=== PATIENT | male | born 1960 | race African-American/Black ===

== ENCOUNTER 2020-02-27 17:58 | Inpatient (IN) | payer MEDICARE, MEDICAID ==
[~2020-02-27] VITALS: Ht 182.9 cm; Wt 85.7 kg
[2020-02-27] MEDS ORDERED: MORPHINE SULFATE 4 MG/ML CPJ (NOT FOR IM USE) IV STA (18:21)
[2020-02-27] MEDS ORDERED: ONDANSETRON HCL 4MG/2ML INJ IV ONE (18:30)
[2020-02-27] MEDS ORDERED: SODIUM CHLORIDE 0.9% 1,000 ML IV ONE (18:30)
[2020-02-27 18:50] LABS: BASOPHILS % 0.9 % (0.0-2.0); EOSINOPHILS % 3.3 % (0.0-5.0); HEMATOCRIT. 41.7 % (42.0-52.0); HEMOGLOBIN. 14.3 g/dL (14.0-18.0); LYMPHOCYTES % 24.1 % (20.0-50.0); MEAN CORPUSCULAR HEMOGLOBIN 35.6 pg (28.0-32.0); MEAN CORPUSCULAR VOLUME 103.4 fL (80.0-94.0); MEAN PLATELET VOLUME 9.5 fl (7.4-10.4); MONOCYTES % 7.1 % (2.0-8.0); NEUTROPHILS % 64.6 % (40.0-76.0); PLATELET 187 x1000/uL (130-400); RED BLOOD CELL COUNT 4.03 mill/uL (4.7-6.1); RED CELL DISTRIBUTION WIDTH 12.2 % (11.6-14.6)
[2020-02-27 19:00] LABS: CHLORIDE 108 mEq/L (98-107)
[2020-02-27] MEDS ORDERED: HYDROMORPHONE HCL/PF 2MG/ML CPJ IV ONE ×2 (20:45→21:45)
[2020-02-27 21:14] LABS: PARTIAL THROMBOPLASTIN TIME 26.4 sec (23.4-31.0)
[2020-02-28] MEDS ORDERED: MORPHINE SULFATE 2 MG/ML CPJ (NOT FOR IM USE) IV PRN (07:45)
[2020-02-28] MEDS ORDERED: HYDROCODONE/ACETAMINOPHEN 10/325MG TABLET PO PRN (09:15)
[2020-02-28] MEDS ORDERED: ONDANSETRON HCL 4MG/2ML INJ IV PRN (09:15)
[2020-02-28] MEDS ORDERED: CLONIDINE 0.1MG TABLET PO PRN (10:45)
[2020-02-28] MEDS: HYDROMORPHONE HCL/PF 2MG/ML CPJ IV PRN ×4 (11:09→20:47)
[2020-02-28 14:06] VITALS: BP 168/103
[2020-02-28 16:00] VITALS: BP 124/82
[2020-02-28 20:00] VITALS: BP 155/88
[2020-02-29 00:23] VITALS: BP 143/93
[2020-02-29] MEDS: HYDROMORPHONE HCL/PF 2MG/ML CPJ IV PRN ×7 (00:25→22:07)
[2020-02-29 04:00] VITALS: BP 155/94
[2020-02-29 08:00] VITALS: BP 128/81
[2020-02-29 12:00] VITALS: BP 120/80
[2020-02-29] MEDS ORDERED: OXYCODONE HCL/ACETAMINOPHEN 5/325MG TABLET PO NR (14:15)
[2020-02-29 16:00] VITALS: BP 122/76
[2020-02-29] MEDS ORDERED: HYDROMORPHONE HCL/PF 2MG/ML CPJ IV NR (16:45)
[2020-02-29] MEDS: DOCUSATE SODIUM 250MG CAPSULE PO SCH (18:02)
[2020-02-29 20:00] VITALS: BP 139/89
[2020-03-01] VITALS: BP_SYST 119; BP_SYST 139; BP_DIAS 74; BP_DIAS 89
[2020-03-01] MEDS: HYDROMORPHONE HCL/PF 2MG/ML CPJ IV PRN ×6 (01:18→20:00)
[2020-03-01 04:00] VITALS: BP 113/74
[2020-03-01 07:23] LABS: BASOPHILS % 0.4 % (0.0-2.0); EOSINOPHILS % 1.7 % (0.0-5.0); HEMATOCRIT. 39.2 % (42.0-52.0); HEMOGLOBIN. 13.7 g/dL (14.0-18.0); LYMPHOCYTES % 16.5 % (20.0-50.0); MEAN CORPUSCULAR HEMOGLOBIN 36.1 pg (28.0-32.0); MEAN CORPUSCULAR VOLUME 103.3 fL (80.0-94.0); MEAN PLATELET VOLUME 9.5 fl (7.4-10.4); MONOCYTES % 12.3 % (2.0-8.0); NEUTROPHILS % 69.1 % (40.0-76.0); PLATELET 146 x1000/uL (130-400); RED BLOOD CELL COUNT 3.79 mill/uL (4.7-6.1); RED CELL DISTRIBUTION WIDTH 12.2 % (11.6-14.6)
[2020-03-01 08:00] VITALS: BP 111/71
[2020-03-01 08:04] LABS: CHLORIDE 103 mEq/L (98-107)
[2020-03-01] MEDS: DOCUSATE SODIUM 250MG CAPSULE PO SCH (08:41)
[2020-03-01] MEDS: KETOROLAC 30MG/ML VIAL IV PRN (11:19)
[2020-03-01 12:00] VITALS: BP 126/69
[2020-03-01] MEDS: OXYCODONE HCL/ACETAMINOPHEN 5/325MG TABLET PO PRN ×3 (13:23→22:18)
[2020-03-01 16:00] VITALS: BP 111/71
[2020-03-01 20:00] VITALS: BP 109/64
[2020-03-02] VITALS: BP 110/76
[2020-03-02] MEDS: HYDROMORPHONE HCL/PF 2MG/ML CPJ IV PRN ×6 (00:27→10:37)
[2020-03-02 04:00] VITALS: BP 112/68
[2020-03-02] MEDS ORDERED: BUPIVACAINE/EPINEPH/PF 0.25%/0.0005 10ML ONE (06:34)
[2020-03-02] MEDS ORDERED: VANCOMYCIN HCL 1 GM/VIAL ONE (06:34)
[2020-03-02] MEDS ORDERED: BACITRACIN 50,000 UNITS/VIAL ONE (06:34)
[2020-03-02] MEDS: KETOROLAC 30MG/ML VIAL IV PRN (06:50)
[2020-03-02] MEDS ORDERED: FENTANYL CITRATE/PF 50MCG/ML 2ML VIAL ONE (07:45)
[2020-03-02] MEDS ORDERED: PROPOFOL 200MG/20ML VIAL IV ONE ×2 (07:45→09:45)
[2020-03-02] MEDS ORDERED: MIDAZOLAM HCL 2 MG/2 ML VIAL ONE (07:46)
[2020-03-02] MEDS ORDERED: DEXAMETHASONE 4MG/ML 1ML VIAL ONE ×2 (07:49→08:10)
[2020-03-02] MEDS ORDERED: ONDANSETRON HCL 4MG/2ML INJ ONE (07:49)
[2020-03-02] MEDS ORDERED: HYDROMORPHONE HCL/PF 2MG/ML (OR) ONE (08:14)
[2020-03-02] MEDS ORDERED: LABETALOL 5MG/ML SYR 20 MG/4 ML SYRINGE IV PRN (09:00)
[2020-03-02] MEDS: DOCUSATE SODIUM 250MG CAPSULE PO SCH (09:00)
[2020-03-02] MEDS ORDERED: ONDANSETRON HCL 4MG/2ML INJ IV PRN (09:00)
[2020-03-02] MEDS ORDERED: MEPERIDINE HCL/PF 25MG/ML CPJ IV PRN (09:00)
[2020-03-02] MEDS ORDERED: HYDROMORPHONE PCA 50 ML IV ONE (09:58)
[2020-03-02] MEDS ORDERED: DIPHENHYDRAMINE INJ IV PRN (10:30)
[2020-03-02] MEDS ORDERED: ONDANSETRON INJ IV PRN (10:30)
[2020-03-02] MEDS ORDERED: NALOXONE INJ IV PRN (10:30)
[2020-03-02] MEDS ORDERED: KETOROLAC 30MG/ML VIAL IV SCH (10:45)
[2020-03-02] MEDS ORDERED: MEPERIDINE HCL/PF 50MG/ML CPJ IM SCH (10:45)
[2020-03-02] MEDS: HYDROMORPHONE PCA 10MG/50ML IV PRN (11:28)
[2020-03-02 12:00] VITALS: BP 128/77
[2020-03-02 16:00] VITALS: BP 126/72
[2020-03-02 18:48] LABS: CLARITY URINE CLEAR (CLEAR); COLOR URINE YELLOW (YELLOW); KETONES URINE NEGATIVE (NEGATIVE); LEUKOCYTE ESTERASE URINE NEGATIVE (NEGATIVE); NITRITE URINE NEGATIVE (NEGATIVE); OCCULT BLOOD URINE 2+ (NEGATIVE); PROTEIN URINE TRACE (NEGATIVE); SPECIFIC GRAVITY URINE 1.026 (1.005-1.030)
[2020-03-02 20:00] VITALS: BP 127/70
[2020-03-02] MEDS: OXYCODONE HCL/ACETAMINOPHEN 5/325MG TABLET PO PRN (21:31)
[2020-03-03] VITALS: BP 122/65
[2020-03-03] MEDS: HYDROMORPHONE PCA 10MG/50ML IV PRN (01:18)
[2020-03-03] MEDS: OXYCODONE HCL/ACETAMINOPHEN 5/325MG TABLET PO PRN ×6 (01:37→22:24)
[2020-03-03 04:00] VITALS: BP 115/73
[2020-03-03 08:00] VITALS: BP 150/91
[2020-03-03 08:20] LABS: BASOPHILS % 0.4 % (0.0-2.0); HEMATOCRIT. 34.2 % (42.0-52.0); HEMOGLOBIN. 12.2 g/dL (14.0-18.0); LYMPHOCYTES % 14.4 % (20.0-50.0); MEAN CORPUSCULAR HEMOGLOBIN 36.9 pg (28.0-32.0); MEAN CORPUSCULAR VOLUME 103.6 fL (80.0-94.0); MEAN PLATELET VOLUME 9.8 fl (7.4-10.4); NEUTROPHILS % 71.2 % (40.0-76.0); PLATELET 149 x1000/uL (130-400); RED CELL DISTRIBUTION WIDTH 12.1 % (11.6-14.6)
[2020-03-03 08:31] LABS: CHLORIDE 103 mEq/L (98-107)
[2020-03-03] MEDS: DOCUSATE SODIUM 250MG CAPSULE PO SCH (08:57)
[2020-03-03] MEDS: HYDROMORPHONE HCL/PF 2MG/ML CPJ IV PRN ×4 (11:55→23:39)
[2020-03-03 12:00] VITALS: BP 139/71
[2020-03-03 16:00] VITALS: BP 145/50
[2020-03-03] MEDS ORDERED: ENOXAPARIN 40MG/0.4ML SYR SUBCUT SCH (16:00)
[2020-03-03] MEDS: TERBINAFINE HCL 1% CREAM 30GM TOP SCH (17:38)
[2020-03-03 20:00] VITALS: BP 137/81
[2020-03-04] VITALS: BP 150/87
[2020-03-04] MEDS: OXYCODONE HCL/ACETAMINOPHEN 5/325MG TABLET PO PRN ×3 (02:27→14:54)
[2020-03-04 04:00] VITALS: BP 119/77
[2020-03-04] MEDS: HYDROMORPHONE HCL/PF 2MG/ML CPJ IV PRN ×2 (04:12→08:30)
[2020-03-04 07:27] LABS: BASOPHILS % 0.6 % (0.0-2.0); EOSINOPHILS % 3.8 % (0.0-5.0); HEMATOCRIT. 36.1 % (42.0-52.0); HEMOGLOBIN. 12.3 g/dL (14.0-18.0); MEAN CORPUSCULAR HEMOGLOBIN 35.7 pg (28.0-32.0); MEAN CORPUSCULAR VOLUME 104.2 fL (80.0-94.0); MEAN PLATELET VOLUME 9.8 fl (7.4-10.4); MONOCYTES % 12.8 % (2.0-8.0); NEUTROPHILS % 66.8 % (40.0-76.0); PLATELET 175 x1000/uL (130-400); RED BLOOD CELL COUNT 3.46 mill/uL (4.7-6.1)
[2020-03-04 07:42] LABS: CHLORIDE 101 mEq/L (98-107)
[2020-03-04 08:00] VITALS: BP 120/77
[2020-03-04] MEDS: DOCUSATE SODIUM 250MG CAPSULE PO SCH (08:28)
[2020-03-04] MEDS: TERBINAFINE HCL 1% CREAM 30GM TOP SCH (08:29)
[2020-03-04] MEDS ORDERED: HYDROMORPHONE HCL/PF 2MG/ML CPJ IV PRN (11:45)
[2020-03-04 12:00] VITALS: BP 128/76
[2020-03-04] MEDS ORDERED: SODIUM POLYSTYRENE SULFONATE 15 G/60 ML BOT PO NR (12:30)
[2020-03-04 15:51] VITALS: BP 137/80
[2020-03-04 16:00] VITALS: BP 137/80
[2020-03-04] MEDS ORDERED: DIAZEPAM 5 MG TABLET PO NR ×2 (16:30→17:00)
[2020-03-04] MEDS ORDERED: OXYCODONE HCL/ACETAMINOPHEN 5/325MG TABLET PO SCH (18:30)
== END 2020-03-04 16:37 | DRG 481 ==
LOC: ER 17:58 → 6EST 21:27 → ENRESERV 02-28 07:51
PROVIDERS: ADMIT Internal Medicine; ATTEND Internal Medicine
PROC: 0QSB04Z Reposition Right Lower Femur with Internal Fixation Device, Open Approach (ICD-10-PCS; principal; 2020-03-02)
DX: S72.451A Displaced supracondylar fracture without intracondylar extension of lower end of right femur, initial encounter for closed fracture (principal); S82.001A Unspecified fracture of right patella, initial encounter for closed fracture; E87.8 Other disorders of electrolyte and fluid balance, not elsewhere classified; M11.20 Other chondrocalcinosis, unspecified site; M17.11 Unilateral primary osteoarthritis, right knee; M48.061 Spinal stenosis, lumbar region without neurogenic claudication; M25.461 Effusion, right knee; M48.02 Spinal stenosis, cervical region; W13.2XXA Fall from, out of or through roof, initial encounter; Y93.89 Activity, other specified; Z88.6 Allergy status to analgesic agent; Z88.8 Allergy status to other drugs, medicaments and biological substances; Y92.89 Other specified places as the place of occurrence of the external cause; Y99.8 Other external cause status; Z03.818 Encounter for observation for suspected exposure to other biological agents ruled out
CPT/HCPCS: 36415; 71045; 72128; 72131; 72170; 73552; 73562; 73700; 76000; 80048; 80053; 81003; 84484; 85025; 93005; 97162; 97165; 97530; 99285; J0171; J1100; J1170; J1650; J1885; J2175; J2250; J2270; J2405; J2704; J3010; J3370; J3490; J7030; U0003-CS

== ENCOUNTER 2020-03-04 16:40 | Inpatient (IN) | payer MEDICARE, MEDICAID ==
[~2020-03-04] VITALS: Ht 167.6 cm; Wt 177.8 kg
[2020-03-04] MEDS ORDERED: NALOXONE HCL 0.4 MG/ML 1ML VIAL IV NR (17:15)
[2020-03-04] MEDS ORDERED: CLONIDINE 0.1MG TABLET PO PRN (17:15)
[2020-03-04] MEDS ORDERED: KETOROLAC 30MG/ML VIAL IV PRN (17:15)
[2020-03-04] MEDS ORDERED: ONDANSETRON HCL 4MG/2ML INJ IV PRN ×2 (17:15)
[2020-03-04] MEDS ORDERED: HYDROMORPHONE HCL/PF 2MG/ML CPJ IV PRN (17:15)
[2020-03-04] MEDS ORDERED: OXYCODONE HCL/ACETAMINOPHEN 5/325MG TABLET PO PRN (17:15)
[2020-03-04] MEDS ORDERED: DIPHENHYDRAMINE 50MG/ML VIAL IM PRN (17:15)
[2020-03-04 17:33] VITALS: BP 132/72
[2020-03-04 18:12] VITALS: BP 132/72
[2020-03-04 20:00] VITALS: BP 125/84
[2020-03-04] MEDS ORDERED: LACTULOSE 20G/30ML UDC PO PRN (21:00)
[2020-03-04] MEDS: OXYCODONE HCL/ACETAMINOPHEN 5/325MG TABLET PO PRN (21:35)
[2020-03-05] MEDS: OXYCODONE HCL/ACETAMINOPHEN 5/325MG TABLET PO PRN ×5 (03:15→19:43)
[2020-03-05 06:31] LABS: BASOPHILS % 0.7 % (0.0-2.0); EOSINOPHILS % 4.1 % (0.0-5.0); HEMATOCRIT. 35.7 % (42.0-52.0); HEMOGLOBIN. 12.5 g/dL (14.0-18.0); LYMPHOCYTES % 12.8 % (20.0-50.0); MEAN CORPUSCULAR VOLUME 102.8 fL (80.0-94.0); MEAN PLATELET VOLUME 9.4 fl (7.4-10.4); MONOCYTES % 10.5 % (2.0-8.0); NEUTROPHILS % 71.9 % (40.0-76.0); PLATELET 184 x1000/uL (130-400); RED BLOOD CELL COUNT 3.47 mill/uL (4.7-6.1); RED CELL DISTRIBUTION WIDTH 12.2 % (11.6-14.6)
[2020-03-05 06:38] LABS: CHLORIDE 101 mEq/L (98-107)
[2020-03-05 07:52] VITALS: BP 126/84
[2020-03-05 07:54] VITALS: BP 126/84
[2020-03-05] MEDS: DOCUSATE SODIUM 250MG CAPSULE PO SCH (08:57)
[2020-03-05] MEDS: TERBINAFINE HCL 1% CREAM 30GM TOP SCH (08:58)
[2020-03-05] MEDS: ENOXAPARIN 40MG/0.4ML SYR SUBCUT SCH (08:58)
[2020-03-05] MEDS ORDERED: TERBINAFINE HCL 1% CREAM 30GM TOP SCH (09:00)
[2020-03-05] MEDS: TAMSULOSIN HCL 0.4MG SR CAPSULE PO SCH (11:37)
[2020-03-05] MEDS: BISACODYL 5MG TABLET PO PRN (17:51)
[2020-03-05 20:00] VITALS: BP 133/74
[2020-03-06] MEDS: OXYCODONE HCL/ACETAMINOPHEN 5/325MG TABLET PO PRN ×6 (00:22→21:03)
[2020-03-06 07:57] VITALS: BP 119/84
[2020-03-06] MEDS: TAMSULOSIN HCL 0.4MG SR CAPSULE PO SCH (09:01)
[2020-03-06] MEDS: DOCUSATE SODIUM 250MG CAPSULE PO SCH (09:02)
[2020-03-06] MEDS: ENOXAPARIN 40MG/0.4ML SYR SUBCUT SCH (09:02)
[2020-03-06] MEDS: TERBINAFINE HCL 1% CREAM 30GM TOP SCH (09:04)
[2020-03-06 13:00] VITALS: BP 123/73
[2020-03-06 20:00] VITALS: BP 124/80
[2020-03-07] MEDS: OXYCODONE HCL/ACETAMINOPHEN 5/325MG TABLET PO PRN ×5 (00:43→20:33)
[2020-03-07 07:40] VITALS: BP 124/67
[2020-03-07] MEDS: TERAZOSIN HCL 5MG CAPSULE PO SCH (08:10)
[2020-03-07] MEDS: FINASTERIDE 5MG TABLET PO SCH (08:11)
[2020-03-07] MEDS: DOCUSATE SODIUM 250MG CAPSULE PO SCH (08:11)
[2020-03-07] MEDS: ENOXAPARIN 40MG/0.4ML SYR SUBCUT SCH (08:12)
[2020-03-07] MEDS: TERBINAFINE HCL 1% CREAM 30GM TOP SCH (08:16)
[2020-03-07] MEDS ORDERED: MECLIZINE 25MG TABLET PO SCH (14:30)
[2020-03-07] MEDS ORDERED: MECLIZINE 25MG TABLET PO PRN (15:30)
[2020-03-07 16:09] LABS: BASOPHILS % 0.6 % (0.0-2.0); EOSINOPHILS % 3.1 % (0.0-5.0); HEMATOCRIT. 35.3 % (42.0-52.0); HEMOGLOBIN. 12.4 g/dL (14.0-18.0); LYMPHOCYTES % 14.4 % (20.0-50.0); MEAN CORPUSCULAR HEMOGLOBIN 36.1 pg (28.0-32.0); MEAN CORPUSCULAR VOLUME 102.7 fL (80.0-94.0); MEAN PLATELET VOLUME 9.9 fl (7.4-10.4); MONOCYTES % 5.8 % (2.0-8.0); NEUTROPHILS % 76.1 % (40.0-76.0); PLATELET 238 x1000/uL (130-400); RED BLOOD CELL COUNT 3.43 mill/uL (4.7-6.1); RED CELL DISTRIBUTION WIDTH 11.7 % (11.6-14.6)
[2020-03-07 16:10] LABS: CHLORIDE 102 mEq/L (98-107)
[2020-03-07 16:32] VITALS: BP_SYST 107; BP_SYST 108; BP_SYST 116; BP_DIAS 60; BP_DIAS 63; BP_DIAS 71
[2020-03-07] MEDS ORDERED: TAMSULOSIN HCL 0.4MG SR CAPSULE PO SCH (17:00)
[2020-03-07 20:00] VITALS: BP 122/67
[2020-03-07 20:58] LABS: CLARITY URINE CLEAR (CLEAR); COLOR URINE YELLOW (YELLOW); KETONES URINE NEGATIVE (NEGATIVE); LEUKOCYTE ESTERASE URINE NEGATIVE (NEGATIVE); NITRITE URINE NEGATIVE (NEGATIVE); OCCULT BLOOD URINE NEGATIVE (NEGATIVE); PROTEIN URINE NEGATIVE (NEGATIVE); SPECIFIC GRAVITY URINE 1.024 (1.005-1.030)
[2020-03-08] MEDS: OXYCODONE HCL/ACETAMINOPHEN 5/325MG TABLET PO PRN ×6 (00:28→21:20)
[2020-03-08 08:00] VITALS: BP 118/85
[2020-03-08] MEDS: TERAZOSIN HCL 5MG CAPSULE PO SCH (08:54)
[2020-03-08] MEDS: DOCUSATE SODIUM 250MG CAPSULE PO SCH (08:54)
[2020-03-08] MEDS: FINASTERIDE 5MG TABLET PO SCH (08:54)
[2020-03-08] MEDS: ENOXAPARIN 40MG/0.4ML SYR SUBCUT SCH (08:55)
[2020-03-08] MEDS: TERBINAFINE HCL 1% CREAM 30GM TOP SCH (13:04)
[2020-03-08 20:00] VITALS: BP 112/77
[2020-03-09] MEDS: OXYCODONE HCL/ACETAMINOPHEN 5/325MG TABLET PO PRN ×6 (02:10→22:11)
[2020-03-09 07:53] VITALS: BP 116/68
[2020-03-09] MEDS: DOCUSATE SODIUM 250MG CAPSULE PO SCH (09:25)
[2020-03-09] MEDS: FINASTERIDE 5MG TABLET PO SCH (09:25)
[2020-03-09] MEDS: TERAZOSIN HCL 5MG CAPSULE PO SCH (09:25)
[2020-03-09] MEDS: ENOXAPARIN 40MG/0.4ML SYR SUBCUT SCH (09:26)
[2020-03-09] MEDS: TERBINAFINE HCL 1% CREAM 30GM TOP SCH (11:29)
[2020-03-09] MEDS: BACLOFEN 10MG TABLET PO SCH (17:34)
[2020-03-09 20:00] VITALS: BP 114/65
[2020-03-09] MEDS: TAMSULOSIN HCL 0.4MG SR CAPSULE PO SCH (20:27)
[2020-03-10] MEDS: OXYCODONE HCL/ACETAMINOPHEN 5/325MG TABLET PO PRN ×6 (02:05→23:56)
[2020-03-10 08:00] VITALS: BP 134/77
[2020-03-10] MEDS ORDERED: DIAZEPAM 5 MG TABLET PO PRN (08:00)
[2020-03-10] MEDS: TERAZOSIN HCL 5MG CAPSULE PO SCH ×2 (08:51→09:00)
[2020-03-10] MEDS: FINASTERIDE 5MG TABLET PO SCH (08:51)
[2020-03-10] MEDS: DOCUSATE SODIUM 250MG CAPSULE PO SCH (08:51)
[2020-03-10] MEDS: BACLOFEN 10MG TABLET PO SCH ×2 (08:51→16:37)
[2020-03-10] MEDS: TAMSULOSIN HCL 0.4MG SR CAPSULE PO SCH (08:51)
[2020-03-10] MEDS: ENOXAPARIN 40MG/0.4ML SYR SUBCUT SCH (08:51)
[2020-03-10] MEDS: TERBINAFINE HCL 1% CREAM 30GM TOP SCH (08:52)
[2020-03-10] MEDS: BISACODYL 5MG TABLET PO PRN (14:15)
[2020-03-10] MEDS ORDERED: DIAZEPAM 5 MG TABLET PO NR (17:30)
[2020-03-10] MEDS ORDERED: FINASTERIDE 5MG TABLET PO SCH (18:30)
[2020-03-10 20:00] VITALS: BP 121/82
[2020-03-11] MEDS: OXYCODONE HCL/ACETAMINOPHEN 5/325MG TABLET PO PRN ×5 (06:32→22:39)
[2020-03-11 08:00] VITALS: BP 123/79
[2020-03-11] MEDS: ENOXAPARIN 40MG/0.4ML SYR SUBCUT SCH (08:19)
[2020-03-11] MEDS: TAMSULOSIN HCL 0.4MG SR CAPSULE PO SCH (08:20)
[2020-03-11] MEDS: TERAZOSIN HCL 5MG CAPSULE PO SCH (08:20)
[2020-03-11] MEDS: BACLOFEN 10MG TABLET PO SCH ×2 (08:20→16:53)
[2020-03-11] MEDS: DOCUSATE SODIUM 250MG CAPSULE PO SCH (08:20)
[2020-03-11] MEDS: TERBINAFINE HCL 1% CREAM 30GM TOP SCH (09:00)
[2020-03-11 09:45] VITALS: BP_SYST 105; BP_SYST 107; BP_DIAS 58; BP_DIAS 59
[2020-03-11] MEDS: FINASTERIDE 5MG TABLET PO SCH (16:53)
[2020-03-11 20:00] VITALS: BP 103/67
[2020-03-12] MEDS: OXYCODONE HCL/ACETAMINOPHEN 5/325MG TABLET PO PRN ×6 (02:37→22:19)
[2020-03-12 08:00] VITALS: BP 115/69
[2020-03-12] MEDS: ENOXAPARIN 40MG/0.4ML SYR SUBCUT SCH (09:30)
[2020-03-12] MEDS: BACLOFEN 10MG TABLET PO SCH ×2 (09:30→16:22)
[2020-03-12] MEDS: DOCUSATE SODIUM 250MG CAPSULE PO SCH (09:31)
[2020-03-12] MEDS: TERAZOSIN HCL 5MG CAPSULE PO SCH ×3 (09:31→16:21)
[2020-03-12] MEDS: TAMSULOSIN HCL 0.4MG SR CAPSULE PO SCH ×3 (09:31→16:22)
[2020-03-12] MEDS: TERBINAFINE HCL 1% CREAM 30GM TOP SCH (09:32)
[2020-03-12] MEDS: FINASTERIDE 5MG TABLET PO SCH (16:22)
[2020-03-12 20:00] VITALS: BP 112/61
[2020-03-13] MEDS: OXYCODONE HCL/ACETAMINOPHEN 5/325MG TABLET PO PRN ×6 (02:18→23:31)
[2020-03-13 07:07] LABS: BASOPHILS % 0.8 % (0.0-2.0); EOSINOPHILS % 3.1 % (0.0-5.0); HEMATOCRIT. 34.7 % (42.0-52.0); HEMOGLOBIN. 12.2 g/dL (14.0-18.0); LYMPHOCYTES % 19.7 % (20.0-50.0); MEAN CORPUSCULAR HEMOGLOBIN 35.9 pg (28.0-32.0); MEAN CORPUSCULAR VOLUME 101.9 fL (80.0-94.0); MEAN PLATELET VOLUME 8.4 fl (7.4-10.4); MONOCYTES % 7.7 % (2.0-8.0); NEUTROPHILS % 68.7 % (40.0-76.0); PLATELET 384 x1000/uL (130-400)
[2020-03-13 08:03] VITALS: BP 138/79
[2020-03-13] MEDS: BACLOFEN 10MG TABLET PO SCH ×2 (08:40→17:20)
[2020-03-13] MEDS: ENOXAPARIN 40MG/0.4ML SYR SUBCUT SCH (08:40)
[2020-03-13] MEDS: DOCUSATE SODIUM 250MG CAPSULE PO SCH (08:40)
[2020-03-13] MEDS: TERBINAFINE HCL 1% CREAM 30GM TOP SCH (08:41)
[2020-03-13] MEDS: TERAZOSIN HCL 5MG CAPSULE PO SCH (17:19)
[2020-03-13] MEDS: TAMSULOSIN HCL 0.4MG SR CAPSULE PO SCH (17:20)
[2020-03-13] MEDS: FINASTERIDE 5MG TABLET PO SCH (17:20)
[2020-03-13] MEDS: BISACODYL 5MG TABLET PO PRN (18:51)
[2020-03-13 20:00] VITALS: BP 106/69
[2020-03-14] MEDS: OXYCODONE HCL/ACETAMINOPHEN 5/325MG TABLET PO PRN ×4 (06:58→20:31)
[2020-03-14 08:00] VITALS: BP 121/68
[2020-03-14] MEDS: BACLOFEN 10MG TABLET PO SCH ×2 (09:03→16:25)
[2020-03-14] MEDS: DOCUSATE SODIUM 250MG CAPSULE PO SCH (09:03)
[2020-03-14] MEDS: ENOXAPARIN 40MG/0.4ML SYR SUBCUT SCH (09:04)
[2020-03-14] MEDS: TERBINAFINE HCL 1% CREAM 30GM TOP SCH (09:06)
[2020-03-14 16:22] VITALS: BP 112/66
[2020-03-14] MEDS: TERAZOSIN HCL 5MG CAPSULE PO SCH (16:24)
[2020-03-14] MEDS: FINASTERIDE 5MG TABLET PO SCH ×2 (16:25→17:14)
[2020-03-14] MEDS: TAMSULOSIN HCL 0.4MG SR CAPSULE PO SCH ×2 (16:25→17:13)
[2020-03-14 19:37] VITALS: BP 114/80
[2020-03-14 20:00] VITALS: BP 114/80
[2020-03-15] MEDS: OXYCODONE HCL/ACETAMINOPHEN 5/325MG TABLET PO PRN ×6 (00:39→22:09)
[2020-03-15 06:41] LABS: CHLORIDE 107 mEq/L (98-107)
[2020-03-15 08:00] VITALS: BP 135/87
[2020-03-15] MEDS: DOCUSATE SODIUM 250MG CAPSULE PO SCH (09:57)
[2020-03-15] MEDS: FINASTERIDE 5MG TABLET PO SCH (09:59)
[2020-03-15] MEDS: TAMSULOSIN HCL 0.4MG SR CAPSULE PO SCH (09:59)
[2020-03-15] MEDS: TERBINAFINE HCL 1% CREAM 30GM TOP SCH (10:00)
[2020-03-15] MEDS: ENOXAPARIN 40MG/0.4ML SYR SUBCUT SCH (10:00)
[2020-03-15] MEDS: BACLOFEN 10MG TABLET PO SCH ×2 (10:00→16:20)
[2020-03-15] MEDS: TERAZOSIN HCL 5MG CAPSULE PO SCH (16:21)
[2020-03-15 20:00] VITALS: BP 116/71
[2020-03-16] MEDS: OXYCODONE HCL/ACETAMINOPHEN 5/325MG TABLET PO PRN ×5 (04:44→22:09)
[2020-03-16 08:16] VITALS: BP 150/87
[2020-03-16] MEDS: TERBINAFINE HCL 1% CREAM 30GM TOP SCH (09:00)
[2020-03-16] MEDS: DOCUSATE SODIUM 250MG CAPSULE PO SCH (09:02)
[2020-03-16] MEDS: TAMSULOSIN HCL 0.4MG SR CAPSULE PO SCH (09:03)
[2020-03-16] MEDS: FINASTERIDE 5MG TABLET PO SCH (09:03)
[2020-03-16] MEDS: BACLOFEN 10MG TABLET PO SCH ×2 (09:04→17:07)
[2020-03-16] MEDS: ENOXAPARIN 40MG/0.4ML SYR SUBCUT SCH (09:05)
[2020-03-16] MEDS: TERAZOSIN HCL 5MG CAPSULE PO SCH (17:09)
[2020-03-16 20:00] VITALS: BP 131/76
[2020-03-17] MEDS: OXYCODONE HCL/ACETAMINOPHEN 5/325MG TABLET PO PRN ×5 (02:09→20:35)
[2020-03-17 08:00] VITALS: BP 113/70
[2020-03-17] MEDS: BACLOFEN 10MG TABLET PO SCH ×2 (09:38→16:33)
[2020-03-17] MEDS: DOCUSATE SODIUM 250MG CAPSULE PO SCH (09:38)
[2020-03-17] MEDS: TAMSULOSIN HCL 0.4MG SR CAPSULE PO SCH (09:38)
[2020-03-17] MEDS: ENOXAPARIN 40MG/0.4ML SYR SUBCUT SCH (09:39)
[2020-03-17] MEDS: FINASTERIDE 5MG TABLET PO SCH (09:39)
[2020-03-17] MEDS: TERBINAFINE HCL 1% CREAM 30GM TOP SCH (11:05)
[2020-03-17] MEDS: TERAZOSIN HCL 5MG CAPSULE PO SCH (16:29)
[2020-03-17] MEDS ORDERED: FINA5TAB11 PO (17:17)
[2020-03-17] MEDS ORDERED: TERA5CAP4 PO (17:17)
[2020-03-17] MEDS ORDERED: OXYC-523 PO (17:17)
[2020-03-17] MEDS ORDERED: DOCU250C14 PO (17:17)
[2020-03-17] MEDS ORDERED: TAMS-11 PO (17:18)
[2020-03-17 20:00] VITALS: BP 130/80
[2020-03-18] MEDS: OXYCODONE HCL/ACETAMINOPHEN 5/325MG TABLET PO PRN ×3 (00:41→09:31)
[2020-03-18 00:52] LABS: *AMPHETAMINES SCREEN URINE NEGATIVE (NEGATIVE); *BARBITURATES SCREEN URINE NEGATIVE (NEGATIVE); *BENZODIAZEPINES SCREEN URINE NEGATIVE (NEGATIVE); *COCAINE SCREEN URINE NEGATIVE (NEGATIVE)
[2020-03-18 00:53] LABS: CANNABINOID URINE SCREEN NEGATIVE (NEGATIVE); METHADONE URINE SCREEN NEGATIVE (NEGATIVE); OPIATES URINE SCREEN PRESUMTIVE POSITIVE (NEGATIVE); PHENCYCLIDINE URINE SCREEN NEGATIVE (NEGATIVE)
[2020-03-18 07:53] VITALS: BP 131/87
[2020-03-18] MEDS: BACLOFEN 10MG TABLET PO SCH (09:23)
[2020-03-18] MEDS: FINASTERIDE 5MG TABLET PO SCH (09:23)
[2020-03-18] MEDS: DOCUSATE SODIUM 250MG CAPSULE PO SCH (09:23)
[2020-03-18] MEDS: ENOXAPARIN 40MG/0.4ML SYR SUBCUT SCH (09:23)
[2020-03-18] MEDS: TAMSULOSIN HCL 0.4MG SR CAPSULE PO SCH (09:23)
[2020-03-18] MEDS: TERBINAFINE HCL 1% CREAM 30GM TOP SCH (09:24)
[2020-03-18 10:10] VITALS: BP 131/87
== END 2020-03-18 14:15 | disposition home health service (06) | DRG 534 ==
PROVIDERS: ADMIT Psychiatry & Neurology Neurology; ATTEND Internal Medicine
DX: S72.401A Unspecified fracture of lower end of right femur, initial encounter for closed fracture (principal); E44.1 Mild protein-calorie malnutrition; Z68.44 Body mass index [BMI] 60.0-69.9, adult; M48.02 Spinal stenosis, cervical region; M48.061 Spinal stenosis, lumbar region without neurogenic claudication; M48.07 Spinal stenosis, lumbosacral region; M51.26 Other intervertebral disc displacement, lumbar region; M51.36 Other intervertebral disc degeneration, lumbar region; N40.0 Benign prostatic hyperplasia without lower urinary tract symptoms; W13.2XXA Fall from, out of or through roof, initial encounter; D64.9 Anemia, unspecified; G89.29 Other chronic pain; H70.10 Chronic mastoiditis, unspecified ear; R74.0 Nonspecific elevation of levels of transaminase and lactic acid dehydrogenase [LDH]; Z60.2 Problems related to living alone; G90.8 Other disorders of autonomic nervous system; M17.11 Unilateral primary osteoarthritis, right knee; Z87.820 Personal history of traumatic brain injury; Z87.891 Personal history of nicotine dependence; Y93.89 Activity, other specified; Y92.89 Other specified places as the place of occurrence of the external cause; Y99.8 Other external cause status; Z88.8 Allergy status to other drugs, medicaments and biological substances; Z79.899 Other long term (current) drug therapy
CPT/HCPCS: 36415; 71045; 72141; 72148; 73560; 80048; 80053; 80305; 81003; 85025; 92523; 93970; 97110; 97116; 97162; 97167; 97530; 97535; J1650; J8597